=== PATIENT | male | born 1990 | race Asian ===

== ENCOUNTER 2018-06-06 17:29 | Emergency (ER) | payer OTHER ==
[2018-06-06] MEDS ORDERED: LOPERAMIDE 2 MG CAPSULE PO STA (17:47)
[2018-06-06] MEDS ORDERED: SODIUM CHLORIDE 0.9% 1,000 ML IV ONE (17:47)
[2018-06-06] MEDS ORDERED: ONDANSETRON 4 MG/2 ML VIAL IVP STA (17:47)
--- NOTE | 2018-06-06 17:48 | ED Physician Documentation ---
PD HPI ABD PAIN - Stated complaint Stated Complaint: N/V/D/FEVER/ABD PX - Chief complaint Chief Complaint: Abd Pain - History obtained from History obtained from: Patient - History of Present Illness Timing - onset: Last night (He has had vomiting and diarrhea since last night associated with central abdominal pain and feeling like he is running a fever although none was measured. His and daughter have similar symptoms. No recent travel or antibiotic use. No blood from either end.) Review of Systems Constitutional: reports: Fever (question) Nose: denies: Rhinorrhea / runny nose Respiratory: denies: Dyspnea, Cough, Wheezing GI: reports: Abdominal Pain, Nausea, Vomiting, Diarrhea. denies: Constipation, Hematemesis, Bloody / black stool PD PAST MEDICAL HISTORY - Past Surgical History Past Surgical History: No - Present Medications Home Medications: Ambulatory Orders Medication Instructions Recorded Confirmed Loperamide [Imodium] 2 mg PO QID PRN #10 capsule 06/06/18 Ondansetron Odt [Zofran] 4 mg TL Q6H PRN #10 tablet 06/06/18 - Allergies Allergies/Adverse Reactions: Allergies Allergy/AdvReac Type Severity Reaction Status Date / Time No Known Drug Allergies Allergy Verified 06/06/18 17:40 - Social History Does the pt smoke?: No Smoking Status: Never smoker Does the pt drink ETOH?: No Does the pt have substance abuse?: No - Immunizations Immunizations are current?: Yes PD ED PE NORMAL - Vitals Vital signs reviewed: Yes - General General: Alert and oriented X 3, No acute distress - HEENT HEENT: Pharynx benign - Cardiac Cardiac: RRR, No murmur - Respiratory Respiratory: No respiratory distress, Clear bilaterally - Abdomen Abdomen: Normal bowel sounds, Soft, Non tender - Extremities Extremities: No deformity, No tenderness to palpate - Neuro Neuro: Alert and oriented X 3, Normal speech Results - Vitals Vitals: Vital Signs - 24 hr 06/06/18 17:37 Temperature 36.4 C L Heart Rate 75 Respiratory 16 Rate Blood Pressure 117/68 O2 Saturation 98 Oxygen O2 Source Room air - Labs Labs: Laboratory Tests 06/06/18 18:10 Sodium 136 Potassium 3.2 L Chloride 103 Carbon Dioxide 26 Anion Gap 7.0 BUN 11 Creatinine 0.8 Estimated GFR (MDRD) 114 Glucose 94 Calcium 8.8 Total Bilirubin 1.3 H AST 22 ALT 20 Alkaline Phosphatase 77 Total Protein 7.6 Albumin 4.4 Globulin 3.2 Albumin/Globulin Ratio 1.4 Lipase 23 PD MEDICAL DECISION MAKING - ED course ED course: 28-year-old gentleman with a syndrome compatible with gastroenteritis. Electrolytes notable for slightly low potassium, repleted orally. Feeling better after IV fluids, Zofran, and Imodium here. On reexamination at 655 he remained completely nontender. He was given appendicitis precautions but he seems low risk for this at this time. - Sepsis Event Vital Signs: Vital Signs - 24 hr 06/06/18 17:37 Temperature 36.4 C L Heart Rate 75 Respiratory 16 Rate Blood Pressure 117/68 O2 Saturation 98 Oxygen O2 Source Room air Departure - Departure Disposition: Home, Self Care Clinical Impression: Gastroenteritis Condition: Good Record reviewed to determine appropriate education?: Yes Instructions: ED Gastroenteritis Viral Prescriptions: Loperamide [Imodium] 2 mg PO QID PRN #10 capsule PRN Reason: Diarrhea Ondansetron Odt [Zofran] 4 mg TL Q6H PRN #10 tablet PRN Reason: Nausea / Vomiting Comments: Return tomorrow morning if not better, anytime if worse or if pain moves to the bottom right part of your abdomen specifically. If you feel like you are running a fever again, check your temperature and return if it is over 101. Forms: Activity restrictions
[2018-06-06 18:44] LABS: ALBUMIN 4.4 g/dL (3.2-5.5); ALBUMIN/GLOBULIN RATIO 1.4 (1.0-2.2); BILIRUBIN,TOTAL 1.3 mg/dL (0.2-1.0); CALCIUM 8.8 mg/dL (8.5-10.3); CREATININE 0.8 mg/dL (0.6-1.2); TOTAL PROTEIN 7.6 g/dL (6.7-8.2)
[2018-06-06] MEDS ORDERED: POTASSIUM BICARB 25 MEQ TABLET PO STA (18:51)
[2018-06-06 19:04] VITALS: BP 132/72
== END 2018-06-06 19:12 | disposition home or self-care (01) ==
LOC: ED 17:29
DX: K52.9 Noninfective gastroenteritis and colitis, unspecified (principal); R11.2 Nausea with vomiting, unspecified
CPT/HCPCS: 36415; 80053; 83690; 96361; 96374; 99283; A9270

== ENCOUNTER 2018-09-30 14:19 | Emergency (ER) | payer OTHER ==
--- NOTE | 2018-09-30 15:37 | ED Physician Documentation ---
PD HPI BACK PAIN - Stated complaint Stated Complaint: BACK PX - Chief complaint Chief Complaint: Back Pain - History obtained from History obtained from: Patient - History of Present Illness Timing - onset: Other (He has had occasional back pain in the past. He developed right-sided upper lumbar/lower thoracic back pain about a week ago while lifting something which has been coming and going ever since and was especially bad this morning better after taking ibuprofen. He had some abdominal cramps with it earlier. This is gone. He denies radiation into the legs or saddle area. There is no associated weakness, numbness, tingling, saddle anesthesia, or incontinence. No fevers.) Review of Systems Constitutional: denies: Fever, Chills Cardiac: denies: Chest pain / pressure, Palpitations Respiratory: denies: Dyspnea, Cough GI: reports: Abdominal Pain (gone). denies: Nausea, Vomiting PD PAST MEDICAL HISTORY - Past Surgical History Past Surgical History: No - Present Medications Home Medications: Ambulatory Orders Medication Instructions Recorded Confirmed Cyclobenzaprine [Flexeril] 10 mg PO TID PRN #20 tablet 09/30/18 - Allergies Allergies/Adverse Reactions: Allergies Allergy/AdvReac Type Severity Reaction Status Date / Time No Known Drug Allergies Allergy Verified 09/30/18 14:36 - Social History Does the pt smoke?: No Smoking Status: Never smoker Does the pt drink ETOH?: No Does the pt have substance abuse?: No - Immunizations Immunizations are current?: Yes PD ED PE NORMAL - Vitals Vital signs reviewed: Yes - General General: Alert and oriented X 3, No acute distress - Respiratory Respiratory: No respiratory distress, Clear bilaterally - Abdomen Abdomen: Normal bowel sounds, Soft, Non tender - Back Back: No spinal TTP, Other (Mild tenderness to the right rhomboid musculature) - Derm Derm: Normal color, Warm and dry - Extremities Extremities: Other (The patient has equal and normal Achilles and patellar reflexes bilaterally. Normal sensation in all areas of the legs. Patient denies saddle anesthesia. Normal strength in flexion-extension at the ankles, knees, and flexion of the hips.) - Neuro Neuro: Alert and oriented X 3, Normal speech Results - Vitals Vitals: Vital Signs - 24 hr 09/30/18 14:33 Temperature 36.2 C L Heart Rate 61 Respiratory 20 Rate Blood Pressure 102/76 O2 Saturation 96 Oxygen O2 Source Room air - Labs Labs: Laboratory Tests 09/30/18 15:39 Urine Color YELLOW Urine Clarity CLEAR Urine pH 6.0 Ur Specific [place] 1.010 Urine Protein NEGATIVE Urine Glucose (UA) NEGATIVE Urine Ketones NEGATIVE Urine Occult Blood NEGATIVE Urine Nitrite NEGATIVE Urine Bilirubin NEGATIVE Urine Urobilinogen 0.2 (NORMAL) Ur Leukocyte Esterase NEGATIVE Ur Microscopic Review NOT INDICATED Urine Culture Comments NOT INDICATED Departure - Departure Disposition: 01 Home, Self Care Clinical Impression: Back pain Qualifiers: Back pain location: low back pain Chronicity: acute Back pain laterality: right Sciatica presence: without sciatica Qualified Code(s): M54.5 - Low back pain Condition: Good Record reviewed to determine appropriate education?: Yes Instructions: ED Neck Back Pain General Prescriptions: Cyclobenzaprine [Flexeril] 10 mg PO TID PRN #20 tablet PRN Reason: Spasms Comments: Continue the ibuprofen as needed for pain in addition to the muscle relaxer. Return for new or worsening symptoms. [place] Forms: Activity restrictions
[2018-09-30 15:44] LABS: BILIRUBIN,URINE NEGATIVE (NEGATIVE); CLARITY,URINE CLEAR (CLEAR); GLUCOSE, URINE (UA) NEGATIVE (NEGATIVE); KETONES,URINE (UA) NEGATIVE (NEGATIVE); LEUKOCYTE ESTERASE, URINE NEGATIVE (NEGATIVE); NITRITE,URINE NEGATIVE (NEGATIVE); OCCULT BLOOD,URINE NEGATIVE (NEGATIVE); PROTEIN,URINE NEGATIVE (NEGATIVE); UROBILINOGEN,URINE 0.2 (NORMAL) E.U./dL (NORMAL)
[2018-09-30 15:55] VITALS: BP 102/74
== END 2018-09-30 16:03 | disposition home or self-care (01) ==
LOC: ED 14:19
DX: M54.5 Low back pain (principal)
CPT/HCPCS: 81001; 81003; 87086; 99283

== ENCOUNTER 2019-07-16 19:35 | Emergency (ER) | payer OTHER ==
[2019-07-16] MEDS ORDERED: SODIUM CHLORIDE 0.9% 1,000 ML IV ONE ×2 (19:43→21:24)
[2019-07-16] MEDS ORDERED: IBUPROFEN 600 MG TABLET PO STA (19:43)
[2019-07-16 19:56] LABS: BASOPHILS # (AUTO) 0.1 10^3/uL (0.0-0.1); BASOPHILS % (AUTO) 0.5 %; EOSINOPHILS % (AUTO) 0.1 %; HGB - HEMOGLOBIN 16.1 g/dL (14.0-18.0); LYMPHOCYTES # (AUTO) 2.6 10^3/uL (1.5-3.5); LYMPHOCYTES % (AUTO) 19.2 %; MEAN CORPUSCULAR HEMOGLOBIN 30.3 pg (27.0-31.0); MEAN CORPUSCULAR VOLUME 86.6 fL (80.0-94.0); MEAN PLATELET VOLUME 8.9 fL (7.4-11.4); MONOCYTES # (AUTO) 1.1 10^3/uL (0.0-1.0); MONOCYTES % (AUTO) 8.5 %; NEUTROPHILS # (AUTO) 9.6 10^3/uL (1.5-6.6); NEUTROPHILS % (AUTO) 71.3 %; PLT - PLATELET COUNT 239 10^3/uL (130-450); RED BLOOD COUNT 5.31 10^6/uL (4.70-6.10); RED CELL DISTRIBUTION WIDTH 12.2 % (12.0-15.0); WHITE BLOOD COUNT 13.4 x10^3/uL (4.8-10.8)
--- NOTE | 2019-07-16 20:06 | ED Physician Documentation ---
PD HPI FEVER - Stated complaint Stated Complaint: FEVER - Chief complaint Chief Complaint: Fever - History obtained from History obtained from: Patient - History of Present Illness Timing - onset: Today Timing duration: Days (1) Timing details: Abrupt onset Associated symptoms: Chills, Sore throat. No: Ear pain, Nasal congestion, Rhinorrhea, Sinus pain, Dry cough, Productive cough, Chest pain, Dyspnea, NVD, Urinary symptoms, Rash/skin lesion Contributing factors: Sick contact (His mother was recently ill with a vomiting illness) Recently seen: Not recently seen - Additional information Additional information: This is a 29-year-old man who presents with complaints that he felt crummy all day was chilled and slept he had a temperature of 103 degrees tonight. He has a headache and he feels dizzy when he stands up. Does have some photophobia and a sore throat but denies strep exposure. He has not passed out. Denies stuffy nose and he feels minimally short of breath with out significant cough. He complained of "a little bit" of chest pain when he breathed. No vomiting or diarrhea, no dysuria and no rash. His only known sick contact was his mother who had a vomiting episode last week. Review of Systems Constitutional: reports: Fever, Chills Eyes: reports: Photophobia Ears: denies: Ear pain Nose: denies: Rhinorrhea / runny nose, Congestion Throat: reports: Sore throat Cardiac: reports: Chest pain / pressure, Palpitations Respiratory: reports: Dyspnea. denies: Cough GI: denies: Abdominal Pain, Nausea, Vomiting, Diarrhea : denies: Dysuria Skin: denies: Rash Musculoskeletal: denies: Neck pain, Back pain Neurologic: reports: Generalized weakness, Headache, Other (Dizziness). denies: Syncope PD PAST MEDICAL HISTORY - Past Medical History Musculoskeletal: Chronic back pain - Past Surgical History Past Surgical History: No - Present Medications Home Medications: Ambulatory Orders Medication Instructions Recorded Confirmed Cyclobenzaprine [Flexeril] 10 mg PO TID PRN #20 tablet 09/30/18 - Allergies Allergies/Adverse Reactions: Allergies Allergy/AdvReac Type Severity Reaction Status Date / Time No Known Drug Allergies Allergy Verified 07/16/19 19:37 - Social History Does the pt smoke?: No Smoking Status: Never smoker Does the pt drink ETOH?: No Does the pt have substance abuse?: No - Immunizations Immunizations are current?: Yes - POLST Patient has POLST: No PD ED PE NORMAL - Vitals Vital signs reviewed: Yes - General General: Alert and oriented X 3, No acute distress, Well developed/nourished - HEENT HEENT: Atraumatic, PERRL, Ears normal, Moist mucous membranes, Other (Tonsils are enlarged and there is erythema with the left tonsil larger than the right but no exudate.) - Neck Neck: Supple, no meningeal sign, No adenopathy - Cardiac Cardiac: No murmur, Strong equal pulses, Other (Tachycardia) - Respiratory Respiratory: No respiratory distress, Clear bilaterally - Abdomen Abdomen: Normal bowel sounds, Soft, Non tender, Non distended, No organomegaly - Derm Derm: Normal color, Warm and dry, No rash - Extremities Extremities: No edema - Neuro Neuro: Alert and oriented X 3, client development manager 2-12 intact, No motor deficit, No sensory deficit, Normal speech, Other (Patient ambulated to the bathroom without any difficulty) - Psych Psych: Normal mood, Normal affect Results - Vitals Vitals: Vital Signs - 24 hr 07/16/19 07/16/19 07/16/19 19:37 19:42 20:42 Temperature 39.1 C H 38.0 C H Heart Rate 112 H 105 H 105 H Respiratory 14 16 17 Rate Blood Pressure 112/77 134/77 H 124/76 O2 Saturation 96 98 100 07/16/19 21:33 Temperature Heart Rate 100 Respiratory 17 Rate Blood Pressure 122/67 O2 Saturation 97 Oxygen O2 Source Room air - Labs Labs: Laboratory Tests 07/16/19 07/16/19 07/16/19 19:50 19:50 19:52 WBC 13.4 H RBC 5.31 Hgb 16.1 Hct 46.0 MCV 86.6 MCH 30.3 MCHC 35.0 RDW 12.2 Plt Count 239 MPV 8.9 Neut # (Auto) 9.6 H Lymph # (Auto) 2.6 Dickens # (Auto) 1.1 H Eos # (Auto) 0.0 Baso # (Auto) 0.1 Absolute Nucleated RBC 0.00 Nucleated RBC % 0.0 Sodium 136 Potassium 3.4 L Chloride 102 Carbon Dioxide 24 Anion Gap 10.0 BUN 13 Creatinine 1.1 Estimated GFR (MDRD) 79 L Glucose 107 H Calcium 9.2 Total Bilirubin 2.0 H AST 34 ALT 66 H Alkaline Phosphatase 81 Total Protein 8.2 Albumin 4.7 Globulin 3.5 Albumin/Globulin Ratio 1.3 Lipase 34 Urine Color Urine Clarity Urine pH Ur Specific [place] Urine Protein Urine Glucose (UA) Urine Ketones Urine Occult Blood Urine Nitrite Urine Bilirubin Urine Urobilinogen Ur Leukocyte Esterase Ur Microscopic Review Urine Culture Comments Group A Strep Rapid Negative 07/16/19 22:30 WBC RBC Hgb Hct MCV MCH MCHC RDW Plt Count MPV Neut # (Auto) Lymph # (Auto) Dickens # (Auto) Eos # (Auto) Baso # (Auto) Absolute Nucleated RBC Nucleated RBC % Sodium Potassium Chloride Carbon Dioxide Anion Gap BUN Creatinine Estimated GFR (MDRD) Glucose Calcium Total Bilirubin AST ALT Alkaline Phosphatase Total Protein Albumin Globulin Albumin/Globulin Ratio Lipase Urine Color YELLOW Urine Clarity CLEAR Urine pH 6.0 Ur Specific [place] <=1.005 Urine Protein NEGATIVE Urine Glucose (UA) NEGATIVE Urine Ketones NEGATIVE Urine Occult Blood TRACE-LYSE Urine Nitrite NEGATIVE Urine Bilirubin NEGATIVE Urine Urobilinogen 0.2 (NORMAL) Ur Leukocyte Esterase NEGATIVE Ur Microscopic Review NOT INDICATED Urine Culture Comments NOT INDICATED Group A Strep Rapid PD MEDICAL DECISION MAKING - ED course Complexity details: reviewed results, re-evaluated patient, d/w patient ED course: White blood cell count was minimally elevated and urine was clear. Chest x-ray was negative. Patient received 2 L of fluid and ibuprofen and Tylenol orally and he became afebrile his heart rate came down below 100 he was up to the bathroom and stated that he was feeling better. His headache was essentially gone. This time there is no obvious clear source of infection I suspect he has a viral illness. Follow-up if he persists with fever for 48 hours or other problems arise. Departure - Departure Disposition: 01 Home, Self Care Clinical Impression: Fever Qualifiers: Fever type: unspecified Qualified Code(s): R50.9 - Fever, unspecified Condition: Good Instructions: ED Fever Unconf Cause, ED Fever Control Follow-Up: JULIÁN Barargan [Provider Group] Comments: Rest tomorrow. Drink plenty of fluids. May take Tylenol and/or ibuprofen if you continue with fever. If he still have a fever in 48 hours she should be reevaluated or sooner if symptoms are worsening particularly with abdominal pain, vomiting, increasing headache or other problems arise.
[2019-07-16 20:11] LABS: ALBUMIN 4.7 g/dL (3.2-5.5); ALBUMIN/GLOBULIN RATIO 1.3 (1.0-2.2); CALCIUM 9.2 mg/dL (8.5-10.3); CREATININE 1.1 mg/dL (0.6-1.2); TOTAL PROTEIN 8.2 g/dL (6.7-8.2)
--- NOTE | 2019-07-16 21:00 | XRAY Report ---
Reason: cough Procedure Date: 07/16/2019 Accession Number: [id number] / [id number] Procedure: XR - Chest 2 View X-Ray CPT Code: 97584 FULL RESULT: EXAM: CHEST RADIOGRAPHY EXAM DATE: 07/16/2019 08:33 PM. CLINICAL HISTORY: Cough. Sore throat, fever, chills and headache. COMPARISON: None. TECHNIQUE: 2 views. FINDINGS: Lungs/Pleura: No focal opacities evident. No pleural effusion. No pneumothorax. Normal volumes. Mediastinum: Heart and mediastinal contours are unremarkable. Other: None. IMPRESSION: Normal 2-view chest radiography. RADIA
[2019-07-16] MEDS ORDERED: ACETAMINOPHEN 325 MG TABLET PO STA (21:24)
[2019-07-16 22:36] LABS: BILIRUBIN,URINE NEGATIVE (NEGATIVE); GLUCOSE, URINE (UA) NEGATIVE (NEGATIVE); KETONES,URINE (UA) NEGATIVE (NEGATIVE); LEUKOCYTE ESTERASE, URINE NEGATIVE (NEGATIVE); NITRITE,URINE NEGATIVE (NEGATIVE); OCCULT BLOOD,URINE TRACE-LYSE (NEGATIVE); PROTEIN,URINE NEGATIVE (NEGATIVE); UROBILINOGEN,URINE 0.2 (NORMAL) E.U./dL (NORMAL)
[2019-07-16 22:40] LABS: CLARITY,URINE CLEAR (CLEAR)
[2019-07-16 22:55] VITALS: BP 122/69
== END 2019-07-16 23:17 | disposition home or self-care (01) ==
LOC: ED 19:35
DX: R50.9 Fever, unspecified (principal); R51 Headache; J35.1 Hypertrophy of tonsils
CPT/HCPCS: 36415; 71046; 80053; 81003; 83690; 85025; 87070; 87430; 96360; 96361; 99282; 99284; A9270; 81001; 87086

== ENCOUNTER 2022-08-01 17:21 | Emergency (ER) | payer OTHER ==
[2022-08-01 17:38] VITALS: BP 131/73
--- NOTE | 2022-08-01 17:49 | ED Physician Documentation ---
PD HPI MAJOR TRAUMA - Stated complaint Stated Complaint: FALL - Chief complaint Chief Complaint: Trauma Ext - History obtained from History obtained from: Patient - Additional information Additional information: At about 9 AM this morning he fell about 8 feet off of a ladder onto his left side onto gravel. He broke his fall with his left hand and has pain of the left ring finger distally. Also left anterior low rib pain that is worse with deep breathing and laughing. No other injuries. No head or neck injury. Review of Systems Ten Systems: 10 systems reviewed and negative Respiratory: denies: Dyspnea, Cough PD PAST MEDICAL HISTORY - Past Medical History Musculoskeletal: Chronic back pain - Past Surgical History Past Surgical History: No - Present Medications Home Medications: Ambulatory Orders Medication Instructions Recorded Confirmed No Known Home Medications 08/01/22 08/01/22 - Allergies Allergies/Adverse Reactions: Allergies Allergy/AdvReac Type Severity Reaction Status Date / Time No Known Drug Allergies Allergy Verified 08/01/22 17:38 - Social History Does the pt smoke?: No Smoking Status: Never smoker Does the pt drink ETOH?: No Does the pt have substance abuse?: No - Immunizations Immunizations are current?: Yes - POLST Patient has POLST: No PD ED PE NORMAL - Vitals Vital signs reviewed: Yes - General General: Alert and oriented X 3, No acute distress - HEENT HEENT: PERRL, EOMI - Neck Neck: Supple, no meningeal sign, No bony TTP, C-Spine cleared by NEXUS criteria - Cardiac Cardiac: RRR, No murmur, Other (Tenderness in the anterior axillary line around rib 9 or 10) - Respiratory Respiratory: No respiratory distress, Clear bilaterally - Abdomen Abdomen: Normal bowel sounds, Soft, Non tender - Back Back: No CVA TTP, No spinal TTP - Derm Derm: Normal color, Warm and dry - Extremities Extremities: Other (Tenderness of the DIP of the left ring finger without deformity but limited range of motion.) - Neuro Neuro: Alert and oriented X 3, political geographer 2-12 intact, Normal speech Eye Opening: Spontaneous Motor: Obeys Commands Verbal: Oriented GCS Score: 15 - Psych Psych: Normal mood, Normal affect Results - Vitals Vitals: Vital Signs - 24 hr 08/01/22 17:28 Temperature 36.6 C Heart Rate 74 Respiratory 16 Rate Blood Pressure 131/73 H O2 Saturation 98 Oxygen O2 Source Room air Procedures - Splint (location) L 4th finger Splint applied by: Tech Type of splint: Metal foam finger splint Other: Patient tolerated well, No complications, Neurovascular intact PD MEDICAL DECISION MAKING - ED course ED course: 32-year-old gentleman with a fall from height with seemingly isolated injuries of the left anterior ribs and left fourth finger. Care to Dr. Valdez at shift change pending imaging. He declines pain medication on initial evaluation. Departure - Departure Clinical Impression: Finger fracture, left Qualifiers: Encounter type: initial encounter Finger: ring finger Fracture type: closed Phalanx: distal Fracture alignment: displaced Qualified Code(s): S62.635A - Displaced fracture of distal phalanx of left ring finger, initial encounter for closed fracture Condition: Good Comments: Keep the splint on your finger, [place] of [place]. You may need a referral from your flight surgeon for emory perez
--- NOTE | 2022-08-01 18:11 | XRAY Report ---
PROCEDURE: Finger(s) LT INDICATIONS: ring finger inj TECHNIQUE: AP hand, 2 views of the fourth finger(s) acquired. COMPARISON: None FINDINGS: Bones: There is a mildly to moderately displaced, intra-articular fracture seen involving the proxima l aspect of the distal pharynx of the fourth finger. This is best demonstrated on the lateral view. M ild comminution can be seen. No additional fractures can be seen. Soft tissues: No suspicious soft tissue calcifications. IMPRESSION: Distal fourth finger fracture, with comminution and intra-articular involvement. Reviewed by: Darren Romano MD on 08/01/2022 5:10 PM [place] Approved by: Darren Romano MD on 08/01/2022 5:10 PM [facility] Station ID: [id number]
--- NOTE | 2022-08-01 18:51 | CT Report ---
PROCEDURE: CHEST WO INDICATIONS: L chest wall inj TECHNIQUE: Noncontrast 1mm axial images were acquired from the pulmonary apices to the posterior costophrenic an gles. Axial 5 mm soft tissue kernel reconstructions were performed as well as 8 mm axial MIP and cor onal and sagittal 5 mm reformations. For radiation dose reduction, the following was used: automate d exposure control, adjustment of mA and/or kV according to patient size. COMPARISON: Chest radiograph dated 07/16/2019 FINDINGS: Image quality: Excellent. Lungs and pleura: No acute air space opacities. No pleural effusions or pneumothorax. Central and peripheral airways are patent and normal in caliber. Mediastinum: Heart size is normal. No pericardial effusion. No mediastinal adenopathy by size crit eria. Thoracic aorta and central pulmonary arteries are normal in size. Esophagus is normal in sara eloisa. No hiatal hernia. Bones and chest wall: There are acute, nondisplaced lateral left sixth through ninth rib fractures. N o suspicious bony lesions. No acute vertebral body compression fractures. No axillary or supraclavi cular adenopathy by size criteria. The thyroid is normal in size and there are no incidental finding s. Abdomen: Visualized upper abdominal solid organs and bowel loops appear normal in the absence of con trast. IMPRESSION: Nondisplaced acute lateral left sixth through ninth rib fractures. No pneumothorax. No evidence for p ulmonary laceration/contusion. No acute cardiopulmonary abnormalities. No acute compression fractures of the imaged spine. CLINICAL RECOMMENDATION STATEMENTS: In patients <35 years with an ITN detected on CT, MRI, or extrathyroidal ultrasound, the Committee re commends further evaluation with dedicated thyroid ultrasound if the nodule is "e1 cm and has no susp icious imaging features, and if the patient has normal life expectancy. In patients "e35 years with an ITN detected on CT, MRI, or extrathyroidal ultrasound, the Committee r ecommends further evaluation with dedicated thyroid ultrasound if the nodule is "e1.5 cm and has no s uspicious imaging features, and if the patient has normal life expectancy. (ACR, 2014) Reviewed by: Matheus Ward MD on 08/01/2022 6:50 PM PST Approved by: Matheus Ward MD on 08/01/2022 6:50 PM PST Station ID: [id number]
--- NOTE | 2022-08-01 19:20 | ED Physician Documentation ---
ED Addendum - Addendum Addendum: 08/01/22 19:16 Patient was signed out to me by Dr. Hanson awaiting CT scan results. CT scan shows fractures to the left ribs, 6 through 9. The patient also has a left fourth digit fracture. Placed in an extension splint for this. We will prescribe pain medication for home. Patient was informed that he needs to ensure close follow-up with an orthopedist for his fracture as this could affect the tendon in that finger. No pneumothorax, no hemothorax. No hypoxia. No respiratory distress. Patient counseled regarding signs and symptoms for which I believe and urgent re-evaluation would be necessary. Patient with good understanding of and agreement to plan and is comfortable going home at this time This document was made in part using voice recognition software. While efforts are made to proofread this document, sound alike and grammatical errors may occur. Departure - Departure Disposition: Home, Self Care Clinical Impression: Finger fracture, left Qualifiers: Encounter type: initial encounter Finger: ring finger Fracture type: closed Phalanx: distal Fracture alignment: displaced Qualified Code(s): S62.635A - Displaced fracture of distal phalanx of left ring finger, initial encounter for closed fracture Ribs, multiple fractures Qualifiers: Encounter type: initial encounter Fracture type: closed Laterality: left Qualified Code(s): S22.42XA - Multiple fractures of ribs, left side, initial encounter for closed fracture Condition: Good Instructions: ED Fx Finger Closed, ED Fx Rib Follow-Up: your,doctor in 1 week [Other] Orthopedic Care [Provider Group] Prescriptions: HYDROcod/ACETAM 5/325 [White 5/325] 1 - 2 ea PO Q6H PRN #14 tablet PRN Reason: Pain Comments: Keep the splint on your finger, [place] 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 Your prescriptions were sent to [facility] in [place]. Your ribs will likely take several weeks to fully heal. Please stay in the splint and make sure that you follow-up with an orthopedist to ensure healing of your finger. I am prescribing a short course of narcotic pain medication for you. These are potentially dangerous and addictive medications that should be used carefully. These medications may constipate you. Take an ioic-lsr-xlorcit stool softener (docusate) twice daily with plenty of water while taking these medications. If you go 24 hours without a bowel movement, take lxcg-ffr-ybczlav miralax, per package instructions. Do not drink or drive while taking these medications. If you received narcotic or sedating medications while in the emergency department, do not drive for 24 hours. Store this medication in a safe, secure place and out of reach of children. It is a violation of federal law to give or sell this medication to another person or to use in a manner other than prescribed. The ED will not refill narcotic prescriptions, including prescriptions lost or stolen. To dispose of unwanted medications: 1. [facility] at [address] in [place] has a medication drop box. They accept prescription medications (in pill form) Wednesday through Wednesday 9:00 a.m. to 5:00 p.m. 2. [facility] accepts prescription medications (in pill form only) for disposal year round. Call for more information. 3. Contact the [facility] for the next [facility] sponsored prescription drug collection event. , [id number], or [id number]; CT scan chest FINDINGS: Image quality: Excellent. Lungs and pleura: No acute air space opacities. No pleural effusions or pneumothorax. Central and peripheral airways are patent and normal in caliber. Mediastinum: Heart size is normal. No pericardial effusion. No mediastinal adenopathy by size criteria. Thoracic aorta and central pulmonary arteries are normal in size. Esophagus is normal in caliber. No hiatal hernia. Bones and chest wall: There are acute, nondisplaced lateral left sixth through ninth rib fractures. No suspicious bony lesions. No acute vertebral body compression fractures. No axillary or supraclavicular adenopathy by size criteria. The thyroid is normal in size and there are no incidental findings. Abdomen: Visualized upper abdominal solid organs and bowel loops appear normal in the absence of contrast. IMPRESSION: Nondisplaced acute lateral left sixth through ninth rib fractures. No pneumothorax. No evidence for pulmonary laceration/contusion. No acute cardiopulmonary abnormalities. No acute compression fractures of the imaged spine. CLINICAL RECOMMENDATION STATEMENTS: In patients <35 years with an ITN detected on CT, MRI, or extrathyroidal ultrasound, the Committee recommends further evaluation with dedicated thyroid ultrasound if the nodule is "e1 cm and has no suspicious imaging features, and if the patient has normal life expectancy. In patients "e35 years with an ITN detected on CT, MRI, or extrathyroidal ultrasound, the Committee recommends further evaluation with dedicated thyroid ultrasound if the nodule is "e1.5 cm and has no suspicious imaging features, and if the patient has normal life expectancy. (ACR, 2014) Reviewed by: Matheus Ward MD on 08/01/2022 6:50 PM PST Approved by: Matheus Ward MD on 08/01/2022 6:50 PM PST Left hand x-ray FINDINGS: Bones: There is a mildly to moderately displaced, intra-articular fracture seen involving the proximal aspect of the distal pharynx of the fourth finger. This is best demonstrated on the lateral view. Mild comminution can be seen. No additional fractures can be seen. Soft tissues: No suspicious soft tissue calcifications. IMPRESSION: Distal fourth finger fracture, with comminution and intra-articular involvement. Discharge Date/Time: 08/01/22 19:31
== END 2022-08-01 19:31 | disposition home or self-care (01) ==
LOC: ED 17:21
DX: S62.635A Displaced fracture of distal phalanx of left ring finger, initial encounter for closed fracture (principal); S22.42XA Multiple fractures of ribs, left side, initial encounter for closed fracture; W11.XXXA Fall on and from ladder, initial encounter; Y93.E9 Activity, other interior property and clothing maintenance
CPT/HCPCS: 99284

== ENCOUNTER 2022-09-17 09:02 | Emergency (ER) | payer OTHER ==
[2022-09-17 09:40] LABS: RAPID STREP SCREEN Negative (Negative)
[2022-09-17] MEDS ORDERED: DEXAMETHASONE 10 MG/ML VIAL PO STA (10:04)
[2022-09-17] MEDS ORDERED: CLINDAMYCIN 150 MG CAPSULE PO STA (10:04)
--- NOTE | 2022-09-17 10:09 | ED Physician Documentation ---
History of Present Illness - Stated complaint Stated Complaint: THROAT PX - Chief complaint Chief Complaint: Heent - History obtained from History obtained from: Patient - History of Present Illness Timing: How many days ago (2) Pain level max: 8 Pain level now: 8 - Additonal information Additional information: Patient is a 32-year-old male who presents to the emergency department right- sided throat pain for the past 2 days. No fever. Has had no rhinorrhea or congestion. No cough. Worse with eating and drinking. Worse with swallowing. Nothing makes it better.Took ibuprofen and hydrocodone without relief. No nausea or vomiting. No trauma. Review of Systems Constitutional: denies: Fever, Chills Respiratory: denies: Cough GI: denies: Nausea, Vomiting, Diarrhea Skin: denies: Rash Musculoskeletal: denies: Neck pain, Back pain Neurologic: denies: Headache PD PAST MEDICAL HISTORY - Past Medical History Past Medical History: Yes Musculoskeletal: Chronic back pain - Past Surgical History Past Surgical History: No - Present Medications Home Medications: Ambulatory Orders Medication Instructions Recorded Confirmed HYDROcod/ACETAM 5/325 [Hymera 5/325] 1 - 2 ea PO Q6H PRN #14 tablet 08/01/22 HYDROcod/ACETAM 5/325 [Hymera 5/325] 1 - 2 ea PO Q6H PRN #14 tablet 09/17/22 Ibuprofen [Motrin] 800 mg PO Q8H PRN #30 tablet 09/17/22 clindamycin HCL [Cleocin HCl] 300 mg PO Q6H #40 cap 09/17/22 - Allergies Allergies/Adverse Reactions: Allergies Allergy/AdvReac Type Severity Reaction Status Date / Time No Known Drug Allergies Allergy Verified 08/06/22 19:12 - Social History Does the pt smoke?: No Smoking Status: Never smoker Does the pt drink ETOH?: No Does the pt have substance abuse?: No - Immunizations Immunizations are current?: Yes - POLST Patient has POLST: No PD ED PE NORMAL - Vitals Vital signs reviewed: Yes - General General: Alert and oriented X 3, No acute distress - HEENT HEENT: Ears normal, Other (Posterior oropharynx - Right tonsil is swollen, edematous and exudates. Uvula midline. Normal phonation. No trismus. Left tonsillar appears smaller, no exudates.) - Neck Neck: Supple, no meningeal sign, No adenopathy - Cardiac Cardiac: RRR, Strong equal pulses - Respiratory Respiratory: No respiratory distress, Clear bilaterally - Derm Derm: Warm and dry, No rash - Neuro Neuro: Alert and oriented X 3 Results - Vitals Vitals: Vital Signs - 24 hr 09/17/22 09/17/22 09:09 10:19 Temperature 37.7 C 37.2 C Heart Rate 109 H 91 Respiratory 18 18 Rate Blood Pressure 144/82 H 131/79 H O2 Saturation 97 98 Oxygen O2 Source Room air - Labs Labs: Laboratory Tests 09/17/22 09:20 Group A Strep Rapid Negative PD Medical Decision Making - ED course Complexity details: reviewed results, re-evaluated patient, considered differential, d/w patient, d/w family ED course: 32 year old male with a right sided tonsillitis. normal phonation. mild trismus. No indication for CT scan or drainage at this time. Will place on steroids and antibiotics and have him follow-up with his doctor. At this point does not appear to have a peritonsillar abscess. Patient counseled regarding signs and symptoms for which I believe and urgent re-evaluation would be necessary. Patient with good understanding of and agreement to plan and is comfortable going home at this time This document was made in part using voice recognition software. While efforts are made to proofread this document, sound alike and grammatical errors may occur. Departure - Departure Disposition: 01 Home, Self Care Clinical Impression: Tonsillitis Condition: Good Instructions: ED Peritonsillar Infec Abx No I andD Follow-Up: your,doctor in 3-5 days if not better [Other] Prescriptions: clindamycin HCL [Cleocin HCl] 300 mg PO Q6H #40 cap Ibuprofen [Motrin] 800 mg PO Q8H PRN #30 tablet PRN Reason: PAIN &/OR FEVER HYDROcod/ACETAM 5/325 [Hymera 5/325] 1 - 2 ea PO Q6H PRN #14 tablet PRN Reason: Pain Comments: Please take all antibiotics until gone. Please follow-up with your doctor for further care. Return if you worsen. Your prescriptions were sent to [facility] in [place]. I am prescribing a short course of narcotic pain medication for you. These are potentially dangerous and addictive medications that should be used carefully. These medications may constipate you. Take an tljk-nzm-xjxwcqs stool softener (docusate) twice daily with plenty of water while taking these medications. If you go 24 hours without a bowel movement, take yyjb-gyp-taatyjn miralax, per package instructions. Do not drink or drive while taking these medications. If you received narcotic or sedating medications while in the emergency dep artment, do not drive for 24 hours. Store this medication in a safe, secure place and out of reach of children. It is a violation of federal law to give or sell this medication to another person or to use in a manner other than prescribed. The ED will not refill narcotic prescriptions, including prescriptions lost or stolen. To dispose of unwanted medications: 1. [facility] [address] in [place] has a medication drop box. They accept prescription medications (in pill form) Wednesday through Wednesday 9:00 a.m. to 5:00 p.m. 2. The [facility] accepts prescription medications (in pill form only) for disposal year round. Call for more information. 3. Contact the [facility] for the next [facility] sponsored prescription drug collection event. , [id number], or [id number]; Discharge Date/Time: 09/17/22 10:21
[2022-09-17] MEDS ORDERED: CHERRY SYRUP 10 ML UDC PO ONE (10:13)
[2022-09-17] MEDS ORDERED: CHERRY SYRUP 10 ML UDC PO STA (10:19)
[2022-09-17 10:21] VITALS: BP 131/79
== END 2022-09-17 10:21 | disposition home or self-care (01) ==
LOC: ED 09:02
DX: J03.90 Acute tonsillitis, unspecified (principal)
CPT/HCPCS: 87070; 87430; 99282; 99283; A9270

== ENCOUNTER 2023-04-01 09:39 | Outpatient (CLI) | payer OTHER ==
--- NOTE | 2023-04-01 10:26 | Sleep Patient Instructions ---
Sleep Center Visit Summary - Patient Visit Information Reason for Visit: Initial consult for evaluation of sleep disordered breathing and other sleep issues. - Patient Instructions Instructions Attached: Sleep Study, Sleep Clinic Visit, Sleep Study Home Monitor Additional Instructions: You will be completing a sleep study, either an in-lab polysomnography (PSG) or home sleep study (HST). You will follow-up in the sleep care office after the sleep study is completed to hear the results and talk about therapy, if needed. You will be called by our office staff to schedule this appointment, but you may contact us with any questions. - Clinic Information Contact: [facility] [address] [place] [address] [email or web address] T: [phone]
--- NOTE | 2023-04-01 10:34 | SLEEP CARE CONSULTATION ---
Information from patient questionnaire entered by Jennifer Park. I have reviewed and concur with the information entered by Jennifer Park. This document represents the service I personally performed and the decisions made by me, Tuyet Crane ARNP. History of Present Illness Service Date and Time: 04/01/2023 0939 Reason for Visit: New patient Chief Complaint: reports: Unrefreshed sleep, Snoring, Excessive daytime sleepiness, Observed pauses in breathing, Fatigue, Frequent awakenings at night Date of Onset: 6YRS Usual bedtime: 10PM Time it takes to fall asleep: 15-45MIN Snores at night: Yes Observed to quit breathing while asleep: Yes Sleeps alone due to snoring: Yes (sometimes) Number of times waking at night: 3-4 Reasons for waking at night: reports: Snoring, Gasping for air (few times), Pain, Bathroom, Other (NOISE ). denies: Choking Toss, Turn, or Twitch while sleeping: Yes Recalls having dreams: No Usually gets out of bed at: 6-7AM Feels refreshed in the morning: No Morning headache: Yes (almost every day; last couple hours; hx migraines) Sleepy or fatigued during the day: Yes Ever fallen asleep while driving: Yes (drowsy driving; gets honks at stoplights sometimes) Takes day naps: Yes (4 days a week; 30-90 minutes) Dreams during day naps: No Prior sleep studies: No Additional HPI information: I had the pleasure of seeing DARYL MORRIS today regarding the possibility of him having a sleep disorder. His current complaints are unrefreshed sleep, snoring, excessive daytime sleepiness, fatigue and frequent night awakenings. He states his fiance thinks he has sleep apnea. She is a nurse. He states he only gets about 5 hours of sleep and does not wake up feeling refreshed. He is semi- retired and will nap often at home if no one is there. He says his fiance tells him that he snores and has pauses in breathing. He has woke up from naps, "snorting". He states he is tired all the time and does have problems with drowsy driving. He has not had an accident from falling asleep but has dozed off at stoplights and been woke up by a car horn. - Parasomnia Symptoms Ever been unable to move upon waking from sleep: Yes (only happens when sick; rare, 1-2 times a year) Walks in sleep: No Talks in sleep: Yes Ever acted out dreams in sleep: Yes (hitting/kicking out sometimes) Ever felt weak in the knees when startled or emotional: Yes (couple times) Bothered by creepy, crawly, restless sensations in legs: Yes (in afternoon mostly) Problems with memory or concentration: Yes (both) Subjective Initial [place] Sleepiness Scale score: 21 (03/31/23) Past Medical History Past Medical History: reports: Arthritis, Anxiety, Depression, Mood disorder (PTSD), Attention deficit, Other (CARPAL TUNNEL, MIGRAINES, BACK PAIN ) Social History 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 Patient is Single and lives in [place]. Have you smoked in the past 12 months: No Alcohol use: No Caffeine use: No Family History Family history of sleep disordered breathing: No Allergies and Home Medications Known drug allergies: No Drug allergies reviewed: Yes Home medication list reviewed: Yes Allergy and home medication list: Allergies No Known Drug Allergies Allergy (Verified 03/31/23 14:49) Medications: Lexapro Sildenafil, prn Sumatriptan prn Tylenol, prn Flexeril, prn Review of Systems Weight gain over past 5 years: 10 Cardiovascular: reports: chest pain (occasional when stressed). denies: high blood pressure Gastrointestinal: denies: heartburn Urinary: reports: urgency Neurological: denies: headaches Psychiatric: reports: Attention Deficit Hyperactivity, anxiety, depression, mood disorder Ear/Nose/Throat: reports: nasal congestion, dry mouth/throat, wisdom teeth removed. denies: tonsillectomy Endocrine: reports: sluggishness, too hot or cold, increased urination, unexplained weakness Musculoskeletal: reports: joint pain, neck pain, back pain, muscle pain or cramping, mobility problems Immunologic: reports: sneezing, rash, itching Physical Exam Vital signs obtained and entered by: JENNIFER Otto MA Blood Pressure: 106/62 (LEFT ARM) Cuff size: regular Heart Rate: 61 O2 Saturation: 98 Height: 5 ft 6 in Weight: 166 lb Body Mass Index: 26.8 BMI Classification: Overweight Neck circumference: 16.5 Mouth and throat: narrow oropharynx Soft palate: long Hard palate: normal Uvula: normal Uvula visualization: 0% Mallampati Class IV Tongue: enlarged in size with teeth glass on lateral edges Tonsils: 2+ Neck: normal w/o lymphadenopathy or thyromegaly Heart: regular rate and rhythm Lungs: clear bilaterally Impression and Plan 1. Suspected Obstructive Sleep Apnea-Hypopnea Syndrome, as suggested by a histor y of loud and irregular snoring, observed cessation of breath while asleep, gasping or choking in sleep, morning headache, frequent awakening during the night, unrefreshed sleep, cognitive impairment, and excessive daytime sleepiness. Narrow oropharynx and obesity are common predisposing factors for obstructive sleep apnea-hypopnea syndrome. I recommend proceeding to polysomnography to confirm the diagnosis and to assess severity. If the patient has significant sleep disordered breathing, a manual CPAP titration study will also be performed to find the optimal treatment pressure. I informed the patient of what the sleep studies involve and after some discussion, obtained agreement to proceed. The pathophysiology of obstructive sleep apnea-hypopnea syndrome was discussed with the patient and health risks of cardiovascular and cerebrovascular disease if not treated. Risks of drowsy driving discussed in detail and patient advised to avoid long distance driving and to slab puller at the first sign of drowsiness. Patient agreed to plan. * Schedule polysomnography +- manual CPAP titration study and return in 1-2 weeks after the study to discuss result and initiate therapy. * Avoid long distance driving or driving when feeling sleepy. * Avoid alcohol, sedative and muscle relaxant around bedtime. * Attempt to lose weight. * Review instructions provided by trained office staff on how to prepare for the sleep study. * Return for follow-up after sleep study completed. Counseling Topics: Weight loss health impact Visit Type: In Office Time Spent with Patient (minutes): 30 Provider Statement: I spent 100% of the Face to Face Visit with the patient with greater than 50% spent counseling the patient and coordination of care.
[2023-04-01 10:39] VITALS: BP 106/62
== END 2023-04-01 09:40 | disposition home or self-care (01) ==
LOC: SC 09:39
PROVIDERS: ATTEND Nurse Practitioner Family
DX: R06.83 Snoring (principal); G47.8 Other sleep disorders; R06.81 Apnea, not elsewhere classified; R51.9 Headache, unspecified; G47.10 Hypersomnia, unspecified; R53.83 Other fatigue; F32.A Depression, unspecified; E66.3 Overweight; Z68.26 Body mass index [BMI] 26.0-26.9, adult
CPT/HCPCS: 99203; 99212

== ENCOUNTER 2023-06-16 09:11 | Outpatient (CLI) | payer OTHER | END 2023-06-16 09:12 | disposition home or self-care (01) | LOC: SC 09:11 | PROVIDERS: ATTEND Nurse Practitioner Family | DX: G47.33 Obstructive sleep apnea (adult) (pediatric) (principal); R09.02 Hypoxemia | CPT/HCPCS: 95806 ==

== ENCOUNTER 2023-06-24 14:58 | Outpatient (CLI) | payer OTHER ==
--- NOTE | 2023-06-24 15:28 | Sleep Patient Instructions ---
Sleep Center Visit Summary - Patient Visit Information Reason for Visit: Sleep study follow-up - Patient Instructions Instructions Attached: CPAP Dc, CPAP Additional Instructions: You are being started on CPAP therapy with pressure setting at 4-15 cmH2O. You will need to call the sleep care office to set up your follow up once you have your APAP machine and we will schedule a visit to check compliance and response to therapy at that time. You may call the office with any concerns about pressure feeling too low or too much for adjustment, if needed. You should contact DME supplier for any questions or concerns about mask or equipment. Please call office to schedule a follow up appointment in the sleep care office one month after obtaining new device. - Clinic Information Contact: [facility] [address] [place] [address] [email or web address] T: [phone]
--- NOTE | 2023-06-24 15:31 | SLEEP CARE CONSULTATION ---
Information from patient questionnaire entered by Jennifer Park. I have reviewed and concur with the information entered by Jennifer Park. This document represents the service I personally performed and the decisions made by me, Tuyet Crane ARNP. History of Present Illness Service Date and Time: 06/24/2023 1455 Initial [place] Sleepiness Scale score: 21 (03/31/23) Current [place] Sleepiness Scale score: 22 (06/24/23) Additional HPI information: DARYL MORRIS returns for follow up and results of the recently performed home sleep study. His sleep study showed moderate obstructive sleep apnea with an average AHI of 20.5 and ina oxygen saturation of 80%. I explained the pathophysiology behind obstructive sleep apnea. We then spent quite a bit of time discussing different treatment options. For mild obstructive sleep apnea, surgery and oral appliance are alternatives to nasal CPAP therapy but in moderate or severe cases, nasal CPAP is the most effective and reliable treatment. Because apnea is primarily in supine position, then positional management therapy could be effective. Methods discussed such as positioning with pillows, using a T-shirt with tennis balls in the back or commercial products that have a pillow format on back to prevent supine sleep. I reviewed the impact of weight changes on sleep apnea and strongly recommended losing weight. After some discussion, the patient opted to go with the nasal CPAP therapy. Nasal autoCPAP set at 4-15 cmH20 will be ordered with rationale explained. A manual titration study will be ordered if unable to find optimal pressure with office adjustments. I explained how CPAP machine works and what to expect when using the machine. Using CPAP every night in order to get used to it was emphasized. Patient advised to put CPAP mask on before getting into bed so as not to fall asleep without CPAP. To assist acclimation to CPAP use, it could also be used for a short time during day while reading or watching TV. The patient was instructed to call the CPAP supplier to discuss any mechanical problem that may occur. If the mask given is uncomfortable or is difficult to keep on through the night even with adjustment, contact the CPAP supplier as many will replace with another mask style if notified before 30 days. If snoring or perceives is not getting enough air or too much air from the machine, notify this office. Patient does not drink alcohol. Patient was cautioned about risks of drowsy driving until sleepiness symptoms resolve. Sleep Study - Results Type of Sleep Study: Home sleep study (COMPLETED 06/16/23) Prior sleep studies: No Polysomnography/Home Sleep Study results: Physician Impression: The quality of the study is good. The length of the study is adequate (> 240 minutes). Please also see the tabulated and graphic data. 1. Obstructive Sleep Apnea-Hypopnea (ICD-10 G47.33), moderate, with an AHI of 20.5/hr and ina SaO2 of 80%. During the study, the patient had 116 apneas (116 obstructive, 0 central, 0 mixed) and 44 hypopneas. The longest episode lasted 87.5 seconds. The respiratory events occurred more frequently during supine sleep (supine AHI was 69.1 and non-supine, 6.30). 2. Hypoxemia (ICD-10 R09.02), mild, with the lowest oxygen saturation of 80 % and 14.3 minutes with SaO2 under 90%. Baseline oxygen saturation was normal (Average oxygen saturation was 94%). Allergies and Home Medications Known drug allergies: No Drug allergies reviewed: Yes Home medication list reviewed: Yes (Hydroxyzine; Lexapro) Allergy and home medication list: Allergies No Known Drug Allergies Allergy (Verified 06/23/23 16:15) Review of Systems Review of systems same as previous: No (Anxiety) Physical Exam Vital signs obtained and entered by: JENNIFER Otto MA Blood Pressure: 112/70 (LEFT ARM) Cuff size: regular Heart Rate: 64 O2 Saturation: 97 Height: 5 ft 6 in Weight: 176 lb Body Mass Index: 28.4 BMI Classification: Overweight Impression and Plan 1. Obstructive Sleep Apnea-Hypopnea Syndrome, moderate, with lowest oxygen saturation of 80%. Obviously this is the cause of the patients symptoms of unrefreshed sleep, and excessive daytime sleepiness. Positive pressure therapy could benefit anxiety, depression, PTSD, attention deficit and migraines. As mentioned above, the patient will be started on nasal autoCPAP therapy with pressure set at 4-15 cmH2O. A manual titration study will be completed if unable to find optimal treatment pressure with office adjustments. Compliance guidelines also reviewed. A copy of compliance guidelines will be given for reference at check out. Because the apnea is more severe supine, I instructed to avoid sleeping supine using pillow positioning until able to start CPAP use. 2. Hypoxemia, mild, with a ina oxygen saturation of 80% and 14.3 minutes spent under 90%. His baseline oxygen saturation was normal with an average oxygen saturation of 94%. 3. Overweight, unspecified. Currently patients BMI is 28.4. Obesity increases the risk of apnea, CPAP pressure requirements and overall health risks e specially cardiovascular and diabetes. Thus patient is advised to lose weight. * Nasal auto CPAP therapy, pressure at 4-15 cm H2O. * Attempt to lose weight. * Avoid alcohol consumption near bedtime. * Avoid supine sleep until using CPAP. * The patient is again cautioned about driving until sleepiness completely resolves. * Return one month after CPAP obtained. I will assess response to therapy and compliance at that time. Counseling Topics: Sleeping position, Weight loss health impact Prescriptions: Auto CPAP Visit Type: In Office Time Spent with Patient (minutes): 20 Provider Statement: I spent 100% of the Face to Face Visit with the patient with greater than 50% spent counseling the patient and coordination of care.
[2023-06-24 15:36] VITALS: BP 112/70; O2SAT 97
== END 2023-06-24 14:59 | disposition home or self-care (01) ==
LOC: SC 14:58
PROVIDERS: ATTEND Nurse Practitioner Family
DX: G47.33 Obstructive sleep apnea (adult) (pediatric) (principal); R09.02 Hypoxemia; E66.3 Overweight; Z68.28 Body mass index [BMI] 28.0-28.9, adult
CPT/HCPCS: 99212; 99213

== ENCOUNTER 2023-10-28 10:00 | Outpatient (CLI) | payer OTHER ==
--- NOTE | 2023-10-28 10:54 | Sleep Patient Instructions ---
Sleep Center Visit Summary - Patient Visit Information Reason for Visit: 4-month follow-up - Patient Instructions Additional Instructions: Because you failed the compliance requirement due to lack of CPAP use we have to re-qualify you for CPAP therapy. You will be completing a sleep study, either an in-lab polysomnography (PSG) or home sleep study (HST). You will follow-up in the sleep care office after the sleep study is completed to hear the results and talk about therapy, if needed. You will be called by our office staff to schedule this appointment, but you may contact us with any questions. - Clinic Information Contact: [facility] [address] [place] [id number] [email or web address] T: [phone]
--- NOTE | 2023-10-28 10:58 | SLEEP CARE CONSULTATION ---
Information from patient questionnaire entered by Jennifer Park. I have reviewed and concur with the information entered by Jeninfer Park. This document represents the service I personally performed and the decisions made by me, Tuyet Crane ARNP. History of Present Illness Service Date and Time: 10/28/2023 1000 Previous diagnosis: Moderate, Obstructive Sleep Apnea-Hypopnea Syndrome AHI: 20.5 (in 05/2023) Reason for follow up: first compliance Equipment type: CPAP (RESMED AirSense 10, s/u 06/2023) Equipment obtained from: Other ([facility]; getting supplies) Mask style: Nasal Backup mask available: Yes Last cushion change: haven't changed yet Prior sleep studies: No Type of Sleep Study: Home sleep study (COMPLETED 06/16/23) HPI additional information: DARYL MORRIS was diagnosed to have moderate, AHI 20.5, obstructive sleep apnea-hypopnea syndrome and returned today for CPAP therapy first compliance follow-up. Sleep Study - Results Type of Sleep Study: Home sleep study (COMPLETED 06/16/23) Prior sleep studies: No CPAP Compliance Data - Data Reviewed with Patient Average duration of nightly device use: 2 HRS 32 MINS Compliance rate %: 3 (09/26/23-10/25/23; 06/19 days used) Current pressure setting (cmH2O): 4-15 (median 4.6, avg 5.6, max 6.6) Average residual AHI: 2.0 Average large leak: 0 L/min Compliance data discussion: We received letter from DME, [facility], stating he failed compliance due to lack of usage. Subjective Missed days of use due to: reports: other (forgetfulness) Patient concerns: denies: aerophagia, mask discomfort, air blowing in eyes, mask leak noise, condensation in mask/hose, nasal congestion, dry mouth, nose, throat, epistaxis Observed to snore while using device: No Current pressure setting perceived as: comfortable On therapy, patient: reports: sleeping better, more rested overall, drowsiness while driving (a little bit, will drive) Initial [place] Sleepiness Scale score: 21 (03/31/23) Current [place] Sleepiness Scale score: 23 Allergies and Home Medications Known drug allergies: No Drug allergies reviewed: Yes Home medication list reviewed: Yes (no changes) Allergy and home medication list: Allergies No Known Drug Allergies Allergy (Verified 10/26/23 13:24) Review of Systems Review of systems same as previous: Yes (no changes) Physical Exam Vital signs obtained and entered by: TUYET SEPULVEDA Blood Pressure: 129/83 Cuff size: long (Left arm) Heart Rate: 62 O2 Saturation: 98 Height: 5 ft 6 in Weight: 179 lb 6.4 oz Body Mass Index: 28.9 BMI Classification: Overweight Impression and Plan 1. Obstructive Sleep Apnea-Hypopnea Syndrome, moderate, with poor treatment compliance and good apnea control. He had failed compliance due to lack of usage of his CPAP. He will need to complete another sleep study to re-qualify for CPAP. I did discuss with patient that he could change to an oral appliance but he would have to do positional therapy since he has extremely severe sleep apnea when sleeping on his back. He voiced understanding but wants to continue with the CPAP. The patients pressure will be changed to autoCPAP 5-10 cmH20 to reflect pressure being used. Patient advised to contact me if pressure change is uncomfortable so that it can be adjusted. Goals for apnea control discussed. We will follow up with him after the sleep study. I encouraged him to try to use the CPAP more to acclimatize to using it for 4 hours or more nightly. He voiced understanding. Patient's apnea severity and rationale for treatment to reduce apnea, improve sleep quality and reduce cardiovascular and cerebrovascular events was reviewed. I also reviewed the benefit of consistent device use of CPAP for depression, anxiety, mood disorder (PTSD) and migraines. 2. Obesity, unspecified. Currently patients BMI is 28.9. Obesity increases the risk of apnea, CPAP pressure requirements and overall health risks especially cardiovascular and diabetes. Thus patient is advised to lose weight. * Repeat sleep study to re-qualify for CPAP * Change Auto CPAP pressure to 5-10 cmH2O and continue with CPAP to acclimatize to use * Attempt to lose weight * Call this office if any problems with CPAP * Return for follow up after sleep study, or sooner if concerns arise Adjust device pressure to (cmH2O): 5-10 Counseling Topics: Spare mask, Weight loss health impact Follow up with Sleep Care in: other (after sleep study) Plan: PSG/HST to re-qualify for CPAP Visit Type: In Office Time Spent with Patient (minutes): 23 Provider Statement: I spent 100% of the Face to Face Visit with the patient with greater than 50% spent counseling the patient and coordination of care.
[2023-10-28 11:01] VITALS: BP 129/83; O2SAT 98
== END 2023-10-28 10:01 | disposition home or self-care (01) ==
LOC: SC 10:00
PROVIDERS: ATTEND Nurse Practitioner Family
DX: G47.33 Obstructive sleep apnea (adult) (pediatric) (principal); E66.3 Overweight; Z68.28 Body mass index [BMI] 28.0-28.9, adult
CPT/HCPCS: 99212; 99213

== ENCOUNTER 2023-11-26 08:29 | Outpatient (CLI) | payer OTHER | END 2023-11-26 08:30 | disposition home or self-care (01) | LOC: SC 08:29 | PROVIDERS: ATTEND Nurse Practitioner Family | DX: G47.33 Obstructive sleep apnea (adult) (pediatric) (principal); R09.02 Hypoxemia | CPT/HCPCS: 95806 ==

== ENCOUNTER 2023-12-02 15:42 | Outpatient (CLI) | payer OTHER ==
--- NOTE | 2023-12-02 16:18 | Sleep Patient Instructions ---
Sleep Center Visit Summary - Patient Visit Information Reason for Visit: Sleep study follow-up - Patient Instructions Additional Instructions: You were here for follow up of CPAP therapy. You will be continued on CPAP therapy with pressure at 5-10 cmH2O. You should follow up with sleep care in 1-2 months. You may contact us sooner for any questions or concerns. - Clinic Information Contact: [facility] [address] [place] [address] [email or web address] T: [phone]
--- NOTE | 2023-12-02 16:22 | SLEEP CARE CONSULTATION ---
Information from patient questionnaire entered by Jennifer Park. I have reviewed and concur with the information entered by Jennifer Park. This document represents the service I personally performed and the decisions made by , Tuyet Crane ARNP. History of Present Illness Service Date and Time: 12/02/2023 154 Initial [place] Sleepiness Scale score: 21 (03/31/23) Current [place] Sleepiness Scale score: 17 (12/02/23) Additional HPI information: DARYL MORRIS returns for follow up and results of the recently performed home sleep study. The sleep study showed severe obstructive sleep apnea with an average AHI of 57.1 and ina oxygen saturation of 78%. I explained the pathophysiology behind obstructive sleep apnea. We then spent quite a bit of time discussing different treatment options. For mild obstructive sleep apnea, surgery and oral appliance are alternatives to nasal CPAP therapy but in moderate or severe cases, nasal CPAP is the most effective and reliable treatment. I reviewed the impact of weight changes on sleep apnea and strongly recommended losing weight. The patient will continue with the nasal CPAP therapy. Nasal autoCPAP set at 5-10 cmH20 will be ordered with rationale explained. Patient does not drink alcohol. Patient was cautioned about risks of drowsy driving until sleepiness symptoms resolve. Sleep Study - Results Type of Sleep Study: Home sleep study (COMPLETED 06/16/23 COMPLETED 11/26/23) Prior sleep studies: No Polysomnography/Home Sleep Study results: Physician Impression: The quality of the study is fair due to partial loss of pulse oximetry signal. The length of the study is adequate (> 240 minutes). Please also see the tabulated and graphic data. 1. Obstructive Sleep Apnea-Hypopnea (ICD-10 G47.33), severe, with an AHI of 57.1/hr and ina SaO2 of 78%. During the study, the patient had 535 apneas (535 obstructive, 0 central, 0 mixed) and 48 hypopneas. The longest episode lasted 60.5 seconds. The respiratory events occurred more frequently during supine sleep (supine AHI was 129.3 and non-supine, 48.98). 2. Hypoxemia (ICD-10 R09.02), moderate, with the lowest oxygen saturation of 78 % and 76.5 minutes with SaO2 under 90%. Baseline oxygen saturation was normal (Average oxygen saturation was 93%). Allergies and Home Medications Known drug allergies: No Drug allergies reviewed: Yes Home medication list reviewed: Yes (no changes) Allergy and home medication list: Allergies No Known Drug Allergies Allergy (Verified 12/02/23 14:11) Review of Systems Review of systems same as previous: Yes (NO CHANGE) Physical Exam Vital signs obtained and entered by: JENNIFER Otto MA Blood Pressure: 134/87 (RIGHT ARM) Cuff size: regular Heart Rate: 61 O2 Saturation: 98 Height: 5 ft 6 in Weight: 180 lb 3.2 oz Body Mass Index: 29.0 BMI Classification: Overweight Impression and Plan 1. Obstructive Sleep Apnea-Hypopnea Syndrome, severe, with lowest oxygen saturation of 78%. He returns to office after sleep study which re-qualified him for CPAP and he wants to continue with CPAP therapy. Positive pressure therapy could benefit depression, anxiety, mood disorder (PTSD) and migraines. The patient will be continued on nasal autoCPAP therapy with pressure set at 5-10 cmH2O. Compliance guidelines also reviewed. A copy of compliance guidelines will be given for reference at check out. 2. Hypoxemia, moderate, with a ina oxygen saturation of 78% and 76.5 minutes spent under 90%. The baseline oxygen saturation was normal with an average oxygen saturation of 93%. 3. Overweight, unspecified. Currently patients BMI is 29. Obesity increases the risk of apnea, CPAP pressure requirements and overall health risks especially cardiovascular and diabetes. Thus patient is advised to lose weight. * Continue auto CPAP pressure at 5-10 cmH2O * Notify me if snoring with mask or feeling that the pressure is too much or too little * Attempt to lose weight * Call this office if any problems using CPAP * Return for follow up in 1-2 months, or sooner if concerns arise Counseling Topics: Weight loss health impact Follow up with Sleep Care in: 1-2 months Visit Type: In Office Time Spent with Patient (minutes): 13 Provider Statement: I spent 100% of the Face to Face Visit with the patient with greater than 50% spent counseling the patient and coordination of care.
[2023-12-02 16:29] VITALS: BP 134/87; O2SAT 98
== END 2023-12-02 15:43 | disposition home or self-care (01) ==
LOC: SC 15:42
PROVIDERS: ATTEND Nurse Practitioner Family
DX: G47.33 Obstructive sleep apnea (adult) (pediatric) (principal); R09.02 Hypoxemia
CPT/HCPCS: 99212

== ENCOUNTER 2023-12-02 23:05 | Emergency (ER) | payer OTHER ==
--- NOTE | 2023-12-03 00:11 | XRAY Report ---
PROCEDURE: Chest 2V INDICATIONS: soa cp TECHNIQUE: 2 views of the chest were acquired. COMPARISON: Chest radiographs 07/16/[address] 08/01/2022. FINDINGS: Surgical changes and devices: None. Lungs and pleura: No pleural effusions or pneumothorax. Lungs are clear. Mediastinum: Mediastinal contours appear normal. Heart size is normal. Bones and chest wall: No suspicious bony lesions. Overlying soft tissues appear unremarkable. IMPRESSION: No acute cardiopulmonary process. Reviewed by: Silvino Ramirez MD on 12/03/2023 12:09 AM PDT Approved by: Silvino Ramirez MD on 12/03/2023 12:09 AM PDT Station ID: [id number]
--- NOTE | 2023-12-03 02:06 | ED Physician Documentation ---
PD HPI CHEST PAIN - Stated complaint Stated Complaint: CHEST PX/SOA - Chief complaint Chief Complaint: Cardiac - History obtained from History obtained from: Patient - Additional information Additional information: 33yM previously healthy p/w cp/soa midsternal dull/sharp X 6 weeks. denies fever cough n/v. PD PAST MEDICAL HISTORY - Past Medical History Past Medical History: Yes Neuro: Migraines Psych: Depression, Anxiety Musculoskeletal: Chronic back pain - Past Surgical History Past Surgical History: No - Present Medications Home Medications: Ambulatory Orders Medication Instructions Recorded Confirmed Escitalopram [Lexapro] See Rx Instructions .ROUTE .COMPLEX 04/01/23 12/02/23 SUMAtriptan [Imitrex] See Rx Instructions .ROUTE .COMPLEX 04/01/23 12/02/23 Sildenafil Citrate [Sildenafil] See Rx Instructions .ROUTE .COMPLEX 04/01/23 12/02/23 - Allergies Allergies/Adverse Reactions: Allergies Allergy/AdvReac Type Severity Reaction Status Date / Time No Known Drug Allergies Allergy Verified 12/02/23 23:20 - Social History Does the pt smoke?: No Smoking Status: Never smoker Does the pt drink ETOH?: No Does the pt have substance abuse?: No - Immunizations Immunizations are current?: Yes - POLST Patient has POLST: No PD ED PE NORMAL - Vitals Vital signs reviewed: Yes - General General: Alert and oriented X 3, No acute distress, Well developed/nourished - HEENT HEENT: Atraumatic, PERRL, EOMI - Neck Neck: Supple, no meningeal sign - Cardiac Cardiac: RRR - Respiratory Respiratory: No respiratory distress, Clear bilaterally - Abdomen Abdomen: Non tender, Non distended Results - Vitals Vitals: Vital Signs - 24 hr 12/02/23 12/03/23 23:14 00:14 Temperature 36.2 C L 36.8 C Heart Rate 65 67 Respiratory 16 14 Rate Blood Pressure 140/87 H 127/77 O2 Saturation 98 97 Oxygen O2 Source Room air PD Medical Decision Making - ED course ED course: 33-year-old man presented with chest pain and shortness of breath for the past 6 weeks. PERC negative. Well-appearing with benign exam. EKG and chest x-ray negative. Advised outpatient follow-up with primary care provider. Return precautions given. Departure - Departure Disposition: 01 Home, Self Care Clinical Impression: Chest pain, Dyspnea Condition: Good Instructions: ED Chest Pain NonCardiac Comments: You were seen in the emergency department for chest pain and shortness of breath. Your ekg and chest xray were normal. Please follow-up with your primary care provider and return to the emergency department if you have any new or worsening symptoms or other concerns.
[2023-12-03 02:26] VITALS: BP 129/70; O2SAT 98
== END 2023-12-03 02:21 | disposition home or self-care (01) ==
LOC: ED 23:05
DX: R07.9 Chest pain, unspecified (principal); R06.02 Shortness of breath; G47.33 Obstructive sleep apnea (adult) (pediatric); R09.02 Hypoxemia
CPT/HCPCS: 93005; 99212; 99283; 99284

== ENCOUNTER 2024-01-05 13:05 | Outpatient (CLI) | payer OTHER ==
--- NOTE | 2024-01-05 13:22 | Sleep Patient Instructions ---
Sleep Center Visit Summary - Patient Visit Information Reason for Visit: 1 month follow-up - Patient Instructions Additional Instructions: You were here for follow up of CPAP therapy. You will be continued on CPAP therapy with pressure at 5-10 cmH2O. You should follow up with sleep care in 1-2 months. You may contact us sooner for any questions or concerns. - Clinic Information Contact: [facility] [address] [place] [address] [email or web address] T: [phone]
--- NOTE | 2024-01-05 13:29 | SLEEP CARE CONSULTATION ---
Information from patient questionnaire entered by Jennifer Park. I have reviewed and concur with the information entered by Jennifer Park. This document represents the service I personally performed and the decisions made by me, Tuyet Crane ARNP. History of Present Illness Service Date and Time: 01/05/2024 1305 Previous diagnosis: Severe, Obstructive Sleep Apnea-Hypopnea Syndrome AHI: 57.1 (11/26/23) 20.5 in 05/2023) Reason for follow up: one month Equipment type: CPAP (RESMED AirSense 10, s/u 06/2023) Equipment obtained from: Other ([facility]; getting supplies) Mask style: Nasal Backup mask available: Yes Last cushion change: 1 week Prior sleep studies: No Type of Sleep Study: Home sleep study (COMPLETED 06/16/23 COMPLETED 11/26/23) HPI additional information: DARYL MORRIS was diagnosed to have severe, AHI 57.1, obstructive sleep apnea-hypopnea syndrome and returned today for CPAP therapy one month follow-up. Sleep Study - Results Type of Sleep Study: Home sleep study (COMPLETED 06/16/23 COMPLETED 11/26/23) Prior sleep studies: No CPAP Compliance Data - Data Reviewed with Patient Average duration of nightly device use: 2 HRS 37 MINS Compliance rate %: 17 (12/04/23-01/02/24; days used) Current pressure setting (cmH2O): 5-10 Average residual AHI: 1.1 Central apnea: 0.3 Obstructive apnea: 0.3 Hypopnea: 0.1 Average large leak: 2.5 L/min Subjective Missed days of use due to: reports: travel, other (mask comes off face at night, does not wake him up) Patient concerns: denies: aerophagia, mask discomfort, air blowing in eyes, mask leak noise, condensation in mask/hose, nasal congestion, dry mouth, nose, throat, epistaxis Observed to snore while using device: No Current pressure setting perceived as: comfortable On therapy, patient: reports: sleeping better, awakening more refreshed, being more awake and alert during the day, more rested overall. denies: drowsiness while driving Initial [place] Sleepiness Scale score: 21 (03/31/23) Current [place] Sleepiness Scale score: 18 (01/05/24) Allergies and Home Medications Known drug allergies: No Drug allergies reviewed: Yes Home medication list reviewed: Yes (no changes) Allergy and home medication list: Allergies No Known Drug Allergies Allergy (Verified 01/03/24 10:16) Review of Systems Review of systems same as previous: Yes (NO CHANGE) Physical Exam Vital signs obtained and entered by: JENNIFER Otto MA Blood Pressure: 129/82 (LEFT ARM) Cuff size: regular Heart Rate: 60 O2 Saturation: 98 Height: 5 ft 5 in Weight: 183 lb 3.2 oz Body Mass Index: 30.4 BMI Classification: Obese Impression and Plan 1. Obstructive Sleep Apnea-Hypopnea Syndrome, severe, with poor treatment compliance and good apnea control. On CPAP therapy, the patient has better sleep quality and is more rested overall. Patient has been able to increase his compliance with being able to get his mask on but it always comes off about 2 and half hours into the night. He says sometimes his or child will knock the mask off his face and he does not notice this in his sleep. He will also get up at times to go to the bathroom and not put the mask back on his face. We discussed that he does get the mask on 83% of the time, but if he can keep the mask on for 4 hours or more his compliance will be good. I encouraged him to put the mask on his pillow to remind him to put it back on when he does get up to the bathroom and have his help him to keep mask on through the night. He voiced understanding and will try these strategies. Patient's apnea severity and rationale for treatment to reduce apnea, improve sleep quality and reduce cardiovascular and cerebrovascular events was reviewed. I also reviewed the benefit of consistent device use of CPAP for depression/anxiety, migraines and mood disorder (PTSD). 2. Obesity, unspecified. Currently patients BMI is 30.4. Obesity increases the risk of apnea, CPAP pressure requirements and overall health risks especially cardiovascular and diabetes. Thus patient is advised to lose weight. * Continue auto CPAP pressure at 5-10 cmH2O * Notify me if snoring with mask or feeling that the pressure is too much or too little * Attempt to lose weight * Call this office if any problems using CPAP * Return for follow up in 1-2 months, or sooner if concerns arise Counseling Topics: Spare mask, Weight loss health impact Follow up with Sleep Care in: 1-2 months Visit Type: In Office Time Spent with Patient (minutes): 14 Provider Statement: I spent 100% of the Face to Face Visit with the patient with greater than 50% spent counseling the patient and coordination of care.
[2024-01-05 13:38] VITALS: BP 129/82; O2SAT 98
== END 2024-01-05 13:06 | disposition home or self-care (01) ==
LOC: SC 13:05
PROVIDERS: ATTEND Nurse Practitioner Family
DX: G47.33 Obstructive sleep apnea (adult) (pediatric) (principal)
CPT/HCPCS: 99212

== ENCOUNTER 2024-01-21 08:16 | Emergency (ER) | payer OTHER ==
[2024-01-21 08:51] LABS: BASOPHILS # (AUTO) 0.1 10^3/uL (0.0-0.1); BASOPHILS % (AUTO) 0.4 %; EOSINOPHILS % (AUTO) 0.1 %; HGB - HEMOGLOBIN 14.8 g/dL (14.0-18.0); LYMPHOCYTES # (AUTO) 1.3 10^3/uL (1.5-3.5); LYMPHOCYTES % (AUTO) 6.2 %; MEAN CORPUSCULAR HEMOGLOBIN 29.7 pg (27.0-31.0); MEAN CORPUSCULAR HGB CONC 34.4 g/dL (32.0-36.0); MEAN CORPUSCULAR VOLUME 86.3 fL (80.0-94.0); MEAN PLATELET VOLUME 9.3 fL (7.4-11.4); MONOCYTES # (AUTO) 1.6 10^3/uL (0.0-1.0); NEUTROPHILS # (AUTO) 17.5 10^3/uL (1.5-6.6); NEUTROPHILS % (AUTO) 84.7 %; PLT - PLATELET COUNT 206 10^3/uL (130-450); RED BLOOD COUNT 4.98 10^6/uL (4.70-6.10); RED CELL DISTRIBUTION WIDTH 12.1 % (12.0-15.0); WHITE BLOOD COUNT 20.6 x10^3/uL (4.8-10.8)
[2024-01-21] MEDS: SODIUM CHLORIDE 0.9% 1,000 ML IV STA (08:52)
[2024-01-21] MEDS: KETOROLAC 30 MG/ML VIAL IVP STA (08:52)
--- NOTE | 2024-01-21 08:56 | ED Physician Documentation ---
History of Present Illness - Stated complaint Stated Complaint: FEVER,SLURRED SPEECH,BALANCE ISSUES - Chief complaint Chief Complaint: General - History obtained from History obtained from: Patient - Additonal information Additional information: Patient is a 33-year-old male without any significant past medical history presenting for evaluation of a fever. Patient has had a fever for the past 2 days and states Tmax is 106 which was recorded this morning. He has had a sore throat. He has body aches. He has had decreased p.o. intake yesterday. But no vomiting or diarrhea. Denies cough or congestion. No known sick contacts. Denies recent travel.He did take a DayQuil this morning but has not tried other medications. reports being concerned this morning Review of Systems Constitutional: reports: Fever Throat: reports: Sore throat Cardiac: denies: Chest pain / pressure Respiratory: denies: Dyspnea, Cough GI: denies: Abdominal Pain, Vomiting, Diarrhea PD PAST MEDICAL HISTORY - Past Medical History Past Medical History: Yes Neuro: Migraines Psych: Depression, Anxiety Musculoskeletal: Chronic back pain - Past Surgical History Past Surgical History: No - Present Medications Home Medications: Ambulatory Orders Medication Instructions Recorded Confirmed Escitalopram [Lexapro] See Rx Instructions .ROUTE .COMPLEX 04/01/23 01/21/24 SUMAtriptan [Imitrex] See Rx Instructions .ROUTE .COMPLEX 04/01/23 01/21/24 Sildenafil Citrate [Sildenafil] See Rx Instructions .ROUTE .COMPLEX 04/01/23 01/21/24 Amoxicillin 1,000 mg PO DAILY 9 Days #18 cap 01/21/24 - Allergies Allergies/Adverse Reactions: Allergies Allergy/AdvReac Type Severity Reaction Status Date / Time No Known Drug Allergies Allergy Verified 01/21/24 08:29 - Social History Does the pt smoke?: No Smoking Status: Never smoker Does the pt drink ETOH?: No Does the pt have substance abuse?: No - Immunizations Immunizations are current?: Yes - POLST Patient has POLST: No PD ED PE NORMAL - General General: Alert and oriented X 3, No acute distress, Well developed/nourished - HEENT HEENT: Atraumatic, PERRL, Moist mucous membranes, Pharynx benign (No oral swelling, erythema or exudate) - Neck Neck: Supple, no meningeal sign - Cardiac Cardiac: Strong equal pulses, Other (Tachycardic, regular rhythm) - Respiratory Respiratory: No respiratory distress, Clear bilaterally - Abdomen Abdomen: Normal bowel sounds, Soft, Non tender, Non distended - Derm Derm: Warm and dry - Extremities Extremities: No deformity - Neuro Neuro: Alert and oriented X 3, No motor deficit, Normal speech Results - Vitals Vitals: Vital Signs - 24 hr 01/21/24 01/21/24 01/21/24 08:23 09:05 09:36 Temperature 37.1 C 38.9 C H Heart Rate 123 H 102 H Respiratory 18 20 Rate Blood Pressure 129/83 H 132/66 H O2 Saturation 96 95 01/21/24 10:07 Temperature 37.3 C Heart Rate 94 Respiratory 20 Rate Blood Pressure 113/79 O2 Saturation 95 Oxygen O2 Source Room air - Labs Labs: Laboratory Tests 01/21/24 01/21/24 01/21/24 08:46 08:46 08:53 WBC 20.6 H RBC 4.98 Hgb 14.8 Hct 43.0 MCV 86.3 MCH 29.7 MCHC 34.4 RDW 12.1 Plt Count 206 MPV 9.3 Neut # (Auto) 17.5 H Lymph # (Auto) 1.3 L [place] # (Auto) 1.6 H Eos # (Auto) 0.0 Baso # (Auto) 0.1 Absolute Nucleated RBC 0.00 Nucleated RBC % 0.0 Manual Slide Review Indicated Platelet Estimate NORMAL (130-450,000) RBC Morph Micro Appear 1+ ANISOCYTOSIS Sodium 134 L Potassium 3.0 L Chloride 99 L Carbon Dioxide 25 Anion Gap 10.0 BUN 15 Creatinine 1.2 Estimated GFR (MDRD) 69 L Glucose 112 H Calcium 9.8 Total Bilirubin 1.5 H AST 64 H ALT 56 Alkaline Phosphatase 89 Total Protein 7.6 Albumin 4.5 Globulin 3.1 Albumin/Globulin Ratio 1.5 Lipase < 10 L Nasal Adenovirus (PCR) NOT DETECTED Nasal B. parapertussis DNA (PCR) NOT DETECTED Nasal Coronavir 229E PCR NOT DETECTED Nasal Coronavir HKU1 PCR NOT DETECTED Nasal Coronavir NL63 PCR NOT DETECTED Nasal Coronavir OC43 PCR NOT DETECTED Nasal Enterovir/Rhinovir PCR NOT DETECTED Nasal Influenza B PCR NOT DETECTED Nasal Influenza A PCR NOT DETECTED Nasal Parainfluen 1 PCR NOT DETECTED Nasal Parainfluen 2 PCR NOT DETECTED Nasal Parainfluen 3 PCR NOT DETECTED Nasal Parainfluen 4 PCR NOT DETECTED Nasal RSV (PCR) NOT DETECTED Nasal B.pertussis DNA PCR NOT DETECTED Nasal C.pneumoniae (PCR) NOT DETECTED Danial Human Metapneumo PCR NOT DETECTED Nasal M.pneumoniae (PCR) NOT DETECTED Nasal SARS-CoV-2 (PCR) NOT DETECTED Group A Strep Rapid 01/21/24 08:53 WBC RBC Hgb Hct MCV MCH MCHC RDW Plt Count MPV Neut # (Auto) Lymph # (Auto) [place] # (Auto) Eos # (Auto) Baso # (Auto) Absolute Nucleated RBC Nucleated RBC % Manual Slide Review Platelet Estimate RBC Morph Micro Appear Sodium Potassium Chloride Carbon Dioxide Anion Gap BUN Creatinine Estimated GFR (MDRD) Glucose Calcium Total Bilirubin AST ALT Alkaline Phosphatase Total Protein Albumin Globulin Albumin/Globulin Ratio Lipase Nasal Adenovirus (PCR) Nasal B. parapertussis DNA (PCR) Nasal Coronavir 229E PCR Nasal Coronavir HKU1 PCR Nasal Coronavir NL63 PCR Nasal Coronavir OC43 PCR Nasal Enterovir/Rhinovir PCR Nasal Influenza B PCR Nasal Influenza A PCR Nasal Parainfluen 1 PCR Nasal Parainfluen 2 PCR Nasal Parainfluen 3 PCR Nasal Parainfluen 4 PCR Nasal RSV (PCR) Nasal B.pertussis DNA PCR Nasal C.pneumoniae (PCR) Danial Human Metapneumo PCR Nasal M.pneumoniae (PCR) Nasal SARS-CoV-2 (PCR) Group A Strep Rapid POSITIVE H PD Medical Decision Making - ED course Complexity details: reviewed results, d/w patient ED course: Patient presenting for evaluation of fever and sore throat. Noted to be tachycardic. Initial triage temperature is normal but on recheck he has noted to have a fever here.Patient reports decreased p.o. intake for the last day and thus labs were obtained. Patient was also given IV fluids, Toradol, acetaminophen with improvement in his symptoms. He is not altered and has no signs of meningitis. He is ambulatory. He speaks clearly. CBC and chemistries were reviewed. WBC of 20,000. Strep swab is positive. Respiratory swab is pending. Vital signs improved with fluids and fever control. Patient counseled regarding his diagnosis of strep pharyngitis and advised on Treatment plan to include antibiotics and continued hydration. Patient And are advised on concerning symptoms to return for. Departure - Departure Disposition: 01 Home, Self Care Clinical Impression: Strep pharyngitis, Leukocytosis, Hypokalemia Condition: Stable Instructions: ED Strep Pharyngitis Conf Prescriptions: Amoxicillin 1,000 mg PO DAILY 9 Days #18 cap Comments: You have tested positive for strep infection. This appears to be what is causing your symptoms including the high fever. I am starting you on an antibiotic and have given you the first dose today. The next dose is not due until tomorrow morning. I have sent the prescription to [facility] in [place]. Please make sure you are staying hydrated with drinking plenty of fluids. Your potassium was low so we did give you potassium replacement. You Do need more acetaminophen than what is in DayQuil to help with your fevers. If you are having a fever you can take 600 mg of ibuprofen Every 6 hours or up to 1000 mg of acetaminophen Every 6 hours as needed. Do not exceed 4000 mg of acetaminophen daily so keep in mind what dose you are taking that is and DayQuil. Your respiratory panel is pending. This will check for COVID, influenza, RSV and a number of other common cold viruses. We will notify you if it is positive for COVID. Otherwise you can check the patient portal for your results. You should quarantine from others until you know your COVID result. Please continue with acetaminophen or ibuprofen as needed for fevers and body aches, plenty of fluids/hydration and rest. Return to the ER with any worsening symptoms such as difficulty breathing or vomiting. Forms: PCP List, Activity restrictions Discharge Date/Time: 01/21/24 10:22
[2024-01-21 08:57] LABS: SLIDE REVIEW? Indicated
[2024-01-21 09:05] LABS: ALBUMIN 4.5 g/dL (3.2-5.5); ALBUMIN/GLOBULIN RATIO 1.5 (1.0-2.2); ALKALINE PHOSPHATASE 89 IU/L (42-121); ALT ALANINE AMINOTRANSFERASE 56 IU/L (10-60); AST ASPARTATE AMINOTRANSFERASE 64 IU/L (10-42); BILIRUBIN,TOTAL 1.5 mg/dL (0.2-1.0); BUN - BLOOD UREA NITROGEN 15 mg/dL (6-20); CALCIUM 9.8 mg/dL (8.5-10.3); CARBON DIOXIDE - CO2 25 mmol/L (21-32); CHLORIDE 99 mmol/L (101-111); CREATININE 1.2 mg/dL (0.6-1.3); GFR - MDRD 69 (>89); GLUCOSE 112 mg/dL (74-104); LIPASE < 10 U/L (11-82); SODIUM 134 mmol/L (135-145); TOTAL PROTEIN 7.6 g/dL (6.4-8.9)
[2024-01-21] MEDS: ACETAMINOPHEN 500 MG TABLET PO STA (09:08)
[2024-01-21 09:16] LABS: PLATELET ESTIMATE, MANUAL NORMAL (130-450,000) (NORMAL); RBC MORPHOLOGY (MULTIPLE) 1+ ANISOCYTOSIS (NORMAL)
[2024-01-21 09:24] LABS: RAPID STREP SCREEN POSITIVE (Negative)
[2024-01-21] MEDS: POTASSIUM BICARB 25 MEQ TABLET PO ONE (09:27)
[2024-01-21 09:39] VITALS: O2SAT 95
[2024-01-21] MEDS: AMOXICILLIN 250 MG CAPSULE PO STA (10:02)
[2024-01-21 10:05] LABS: B. PARAPERTUSSIS- RESP PCR PAN NOT DETECTED; B. PERTUSSIS- RESP PCR PANEL NOT DETECTED; C. PNEUMONIAE- RESP PCR PANEL NOT DETECTED; CORONAVIRUS 229E-RESP PCR NOT DETECTED; CORONAVIRUS HKU1-RESP PCR NOT DETECTED; CORONAVIRUS NL63-RESP PCR NOT DETECTED; CORONAVIRUS OC43-RESP PCR NOT DETECTED; HUMAN METAPNEUMOVIRUS NOT DETECTED; INFLUENZA A- RESP PCR PANEL NOT DETECTED; INFLUENZA B - RESP PCR PANEL NOT DETECTED; M. PNEUMONIAE- RESP PCR PANEL NOT DETECTED; PARAINFLUENZA VIRUS 1 NOT DETECTED; PARAINFLUENZA VIRUS 2 NOT DETECTED; PARAINFLUENZA VIRUS 3 NOT DETECTED; PARAINFLUENZA VIRUS 4 NOT DETECTED; RHINOVIRUS/ENTEROVIRUS NOT DETECTED; RSV- RESP PCR PANEL NOT DETECTED; SARS-CoV-2 -RESP PCR PANEL NOT DETECTED
[2024-01-21 10:08] VITALS: BP 113/79
== END 2024-01-21 10:22 | disposition home or self-care (01) ==
LOC: ED 08:16
DX: J02.0 Streptococcal pharyngitis (principal); D72.829 Elevated white blood cell count, unspecified; E87.6 Hypokalemia
CPT/HCPCS: 36415; 80053; 83690; 85025; 87430; 87633; 96361; 96374; 99283; 99284; A9270